=== PATIENT | male | born 1955 ===

== ENCOUNTER 2023-07-09 06:06 | Inpatient (IN) | payer MEDICARE, OTHER, SELFPAY ==
--- NOTE | 2023-06-05 09:05 | CM ---
Patient is scheduled for an elective R TKR on 07/09/23. Spoke with patient prior to surgery via telephone. Introduced role of Orthopedic Navigator. Patient reports that he lives alone in a two story home. There are two steps to enter and patient has
a first floor set up. He currently functions independently. He has no DME and has never had VN services. PCP is Miriam Pink.
Discussed orthopedic program and post surgical plans. Reviewed anticipated length of stay and that goal is for him to return home at discharge. Also reviewed outpatient PT. Patient is in agreement with tentative plan and will go directly to
outpatient PT at [facility]. He is unsure if anyone will stay with him but will have support from his daughters and neighbors.
Patient will complete online education.
Plan: Orthopedic Navigator will remain available to assist with the care of patient and will reassess discharge needs after surgery.
[2023-06-20 14:03] VITALS: BMI 32.3
[2023-06-20 14:22] LABS: Hematocrit 40.9 % (39.0-52.0); Hemoglobin 14.2 g/dL (13.0-18.0); Mean Corp Hgb Conc. 34.7 g/dL (33.0-37.0); Mean Corpuscular Hgb 31.5 pg (27.0-31.0); Mean Corpuscular Volume 90.7 fL (80.0-94.0); Mean Platelet Volume 10.5 fL (7.4-10.4); Platelet Count 162 10^3/uL (130-400); Red Blood Cell Count 4.51 10^6/uL (4.70-6.10); Red Cell Dist. Width 14.6 % (11.5-14.5); White Blood Cell Count 8.4 10^3/uL (4.8-10.8)
[2023-06-20 14:48] LABS: ALT (SGPT) 51 U/L (0-50); AST (SGOT) 52 U/L (17-59); Albumin 4.6 g/dl (3.5-5.0); Alkaline Phosphatase 94 U/L (38-126); Blood Urea Nitrogen 18 mg/dl (9-20); Calcium 9.3 mg/dl (8.4-10.2); Carbon Dioxide 25 mmol/L (22-30); Chloride 103 mmol/L (98-107); Estimated Creatinine Clearance 87 ml/min; Glucose 91 mg/dl (70-99); Potassium 4.7 mmol/L (3.5-5.1); Sodium 136 mmol/L (135-145); Total Bilirubin 0.8 mg/dl (0.2-1.3); Total Protein 7.4 g/dl (6.3-8.2); eGFR > 60.00
[2023-06-20 15:36] VITALS: BMI 32.3
[2023-06-21 09:24] LABS: Glycohemoglobin (HgbA1c) 5.5 % (4.0-5.6)
[2023-07-09] VITALS (11 sets, daily range): BP systolic 114–139; BP diastolic 58–84; BMI 32.3
[2023-07-09] MEDS: TYLENOL 650 MG PO ×4 (07:06→21:22)
[2023-07-09] MEDS: CELEBREX 200 MG PO (07:06)
[2023-07-09] MEDS: NORMOSOL-R 1000 IV ×2 (07:07→10:46)
[2023-07-09] MEDS: ROXICODONE 5 MG PO (10:45)
--- NOTE | 2023-07-09 11:15 | PTCARENOTE ---
Pt received from the PACU via Bed. Transport was w/o incident. Pt is AAOx3, HRR, lungs are clear, resp. easy. Right knee with Aquacell dressing C/D/I, no drainage noted at present. Pt reports full feeling right leg down to his toes. Pt able to move
his right leg and wiggle toes. Positive pedal pulses palpated. Pt reports pain as mild 'odd feeling', and denies nausea. Pt instructed on plan of care. Pt verbalized understanding of instructions. Call castorena is within reach.
[2023-07-09] MEDS: ULTRAM 50 MG PO ×3 (14:29→21:30)
[2023-07-09] MEDS: NEURONTIN 300 MG PO ×2 (14:29→21:29)
[2023-07-09] MEDS: ZOLOFT 100 MG PO (14:30)
[2023-07-09] MEDS: SERAX 10 MG PO ×2 (14:30→21:26)
[2023-07-09] MEDS: THIAMINE INJECTION 200 MG IV (14:30)
[2023-07-09] MEDS: TORADOL 15 MG IV ×2 (14:31→23:54)
[2023-07-09] MEDS: ANCEF 5 IV ×2 (15:20→23:56)
[2023-07-09] MEDS: ASPIRIN 325 MG PO (18:21)
[2023-07-09] MEDS: SENOKOT 17.1999999999999993 MG PO (21:25)
[2023-07-09] MEDS: COLACE 100 MG PO (21:26)
[2023-07-09] MEDS: DECADRON 4 MG PO (21:26)
[2023-07-09] MEDS: CRESTOR 10 MG PO (21:28)
[2023-07-09] MEDS: PROTONIX 40 MG PO (21:28)
[2023-07-09] MEDS: BACTROBAN 2% OINTMENT 2 APPLIC NASAL (22:05)
[2023-07-10] MEDS: TYLENOL PO (00:24)
[2023-07-10 03:40] VITALS: BP 111/67
[2023-07-10] MEDS: TYLENOL 650 MG PO ×3 (04:35→12:08)
[2023-07-10 07:31] VITALS: BP 129/79
[2023-07-10 07:55] LABS: Hepatitis C Antibody Negative (Negative)
[2023-07-10] MEDS: BENICAR 40 MG PO (08:20)
[2023-07-10] MEDS: ORETIC 25 MG PO (08:20)
[2023-07-10] MEDS: BACTROBAN 2% OINTMENT 1 APPLIC NASAL (08:20)
[2023-07-10] MEDS: DECADRON 4 MG PO (08:21)
[2023-07-10] MEDS: ASPIRIN 325 MG PO (08:21)
[2023-07-10] MEDS: NEURONTIN 300 MG PO (08:21)
[2023-07-10] MEDS: ZOLOFT 100 MG PO (08:21)
[2023-07-10] MEDS: COLACE 100 MG PO (08:21)
[2023-07-10] MEDS: NORVASC 5 MG PO (08:21)
[2023-07-10] MEDS: SENOKOT 17.1999999999999993 MG PO (08:21)
[2023-07-10] MEDS: SERAX 10 MG PO (08:21)
[2023-07-10] MEDS: THIAMINE INJECTION 200 MG IV (08:22)
[2023-07-10] MEDS: ULTRAM 50 MG PO (08:22)
[2023-07-10] MEDS: MOBIC 15 MG PO (08:22)
--- NOTE | 2023-07-10 08:24 | CM ---
Addendum entered by Loree Verma 07/10/23 11:33:
Patient did well in therapy and has no concerns about going home. Reinforced need to have assistance on the steps he has to enter his home; he expressed understanding. He has updated his daughter.
Original Note:
Reviewed chart and held rounds with PT, OT and nursing. Patient admitted as planned for elective R TKR. Met with patient at bedside. Confirmed information previously obtained for assessment. Also discussed discharge plans. The plan is for patient to
return home at discharge. He will have support from his daughters and friends when he goes home but no one will stay with him. Patient will go directly to outpatient PT and will go to [facility]. He has an appointment scheduled for Sunday, 07/11.
Patient has a cane and shower seat. He will need a rolling walker issued for home use; script obtained and given to PT.
He will use [facility] for discharge prescriptions.
--- NOTE | 2023-07-10 09:19 | W.PN.ORTHO ---
Today's Communication / Plan
-
d/c
Assessment
.
Distal Motor Intact: Yes
Dressing:
Clean, dry and intact.
Assessment:
Daily ETOH-Serax, Thiamin, Gabapentin-no sx of withdrawl--pain well controlled on current regimen
Plan
.
Surgery / Date: O/A s/p R TKA Dr. Silverio 07/09/23
DVT Prophylaxis: Aspirin
Activity:
Out of bed.
PT/OT
Discharge Plan: Home w/ Outpatient PT
Subjective
.
.:
Patient resting comfortably.
Vital Signs and Labs
.
Vital Signs and Labs:
Lab Results
06/20/23 13:52
06/20/23 13:52
Temp Pulse Resp BP Pulse Ox
97.7 F 79 16 129/79 95
07/10/23 07:31 07/10/23 07:31 07/10/23 07:31 07/10/23 07:31 07/10/23 07:31
Non-invasive Hgb result: 13.8
Physical Exam
-
HEENT: No pallor, cyanosis, or jaundice. Throat clear.
ABDOMEN: Soft, non-tender. No distension. BS+/normal.
EXTREMITIES: strength equal, no calf pain with palpation
WEB PRESSMAN: AOx3. No focal deficits. unit assistant grossly intact
--- NOTE | 2023-07-10 09:28 | W.DS.TRANS ---
DC Summary - Firer Low Pressure
-
Discharge Instructions:
Sleep Apnea Risk Intermediate
Discharge Diagnosis/Procedures O/A s/p R TKA Dr. Silverio 07/09/23
Diet As tolerated
Activity With Walker
Driving Restrictions No driving
Bathing Restrictions OK to Shower
Other Services PT
Instructions:
Stand-Alone Forms: Total Hip/Knee Replacement D/C
Changes to Home Medications: Yes
Discharge Medications:
DC Medications w/original date entered in [facility]
amlodipine 10 mg tablet 10 mg PO DAILY 06/18/23
naltrexone 50 mg tablet 50 mg PO DAILY 06/18/23
olmesartan 40 mg-hydrochlorothiazide 25 mg tablet 1 tab PO DAILY 06/18/23
rosuvastatin 10 mg tablet 10 mg PO DAILY 06/18/23
sertraline 100 mg tablet 100 mg PO DAILY 06/18/23
mupirocin 2 % topical ointment 1 applic topical BID infection prevention #1 tube 06/20/23
Saccharomyces boulardii 250 mg capsule (Florastor) 250 mg PO BID #1 cap 07/10/23
aspirin 325 mg tablet 325 mg PO DAILY blood clot prevention #1 tab 07/10/23
cefadroxil 500 mg capsule 500 mg PO BID infection prevention #14 caps 07/10/23
dexamethasone 4 mg tablet 4 mg PO BID inflammation #6 tabs 07/10/23
docusate sodium 100 mg capsule (Colace) 100 mg PO BID stool softner #1 cap 07/10/23
famotidine 20 mg tablet 20 mg PO HS GI prophylaxis #30 tabs 07/10/23
gabapentin 300 mg capsule 300 mg PO TID sleep/pain #30 caps 07/10/23
magnesium hydroxide 400 mg/5 mL oral suspension (Milk of Magnesia) 30 ml PO HS PRN Constipation #1 mL 07/10/23
meloxicam 15 mg tablet 15 mg PO DAILY anti-inflammatory #14 tabs 07/10/23
oxycodone 5 mg tablet 5 - 10 mg PO Q6HPRN PRN 1 tab moderate-2 tabs severe pain #30 tabs 07/10/23
sennosides 8.6 mg tablet (Senokot) 17.2 mg PO BID laxative #2 tabs 07/10/23
tramadol 50 mg tablet 50 mg PO QID ONGOING THERAPY #30 tabs 07/10/23
Home Medication Changes
cefadroxil 500 mg capsule 500 mg PO BID infection prevention #14 caps 07/10/23�
dexamethasone 4 mg tablet 4 mg PO BID inflammation #6 tabs 07/10/23�
famotidine 20 mg tablet 20 mg PO HS GI prophylaxis #30 tabs 07/10/23�
gabapentin 300 mg capsule 300 mg PO TID sleep/pain #30 caps 07/10/23�
meloxicam 15 mg tablet 15 mg PO DAILY anti-inflammatory #14 tabs 07/10/23�
oxycodone 5 mg tablet 5 - 10 mg PO Q6HPRN PRN 1 tab moderate-2 tabs severe pain #30 tabs 07/10/23�
tramadol 50 mg tablet 50 mg PO QID ONGOING THERAPY #30 tabs 07/10/23�
Pending Results: No
[2023-07-10 10:38] VITALS: PULSE 80; O2SAT 95
[2023-07-10 10:55] VITALS: BP 125/64
[2023-07-10 11:30] VITALS: BP 135/73; PULSE 73; O2SAT 96
[2023-07-10] MEDS: TORADOL 15 MG IV (12:08)
== END 2023-07-10 13:15 | disposition home or self-care (01) | DRG 470 ==
LOC: 2 SOUTH 06:06
PROVIDERS: ADMITTING PHYSICIAN Specialist; FAMILY PHYSICIAN Family Medicine
PROC: 0SRC0J9 Replacement of Right Knee Joint with Synthetic Substitute, Cemented, Open Approach (ICD-10-PCS; 2023-07-09)
DX: M17.11 Unilateral primary osteoarthritis, right knee (principal); E66.9 Obesity, unspecified; M48.00 Spinal stenosis, site unspecified; F32.A Depression, unspecified; F41.9 Anxiety disorder, unspecified; F10.10 Alcohol abuse, uncomplicated; I10 Essential (primary) hypertension; M51.36 Other intervertebral disc degeneration, lumbar region; E78.5 Hyperlipidemia, unspecified; Z68.32 Body mass index [BMI] 32.0-32.9, adult
CPT/HCPCS: 36415; 73560; 80053; 83036; 85027; 86803; 87070; 93005; 97110; 97116; 97162; 97166; 97530; C1713; C1776